=== PATIENT | male | born 1970 | race Caucasian/White ===

== ENCOUNTER 2017-03-04 22:48 | Emergency (ER) | payer BC ==
[2017-03-04] MEDS ORDERED: DIPH,PERTUSS(ACELL),TET VAC/PF 0.5 ML VIAL IM ONE (23:16)
[2017-03-04] MEDS ORDERED: LIDOCAINE HCL 1% 20 ML VIAL ONE (23:16)
[2017-03-05] MEDS ORDERED: [UNRECOGNIZED DRUG - OTHER] PO ONE (00:05)
--- NOTE | 2017-03-05 00:48 | ER NURSING DOCUMENTATION ---
Nurse's Notes [facility] Name:Ketan Oropeza Age:46 yrs Sex:Male :1970 Arrival Date:03/04/2017 Time:22:48 Bed1 Private MD:King Kerns Diagnosis:Foot Laceration;Tendon Injury Presentation: 03/04 22:53 Presenting complaint: Patient states: At 2215, dropped a dirty knife (cutting beef) on sj his foot. 1 cm lac to top of right foot. Now has numbness to dorsum of foot and all toes. Transition of care: Home. Notified ED Physician of patient's arrival and CC Dr. Baxter notified. Care prior to arrival: cleaned with peroxide. 22:53 Acuity: HARDIK 3 sj 22:53 Method Of Arrival: Private Vehicle Triage Assessment: 22:56 General: Appears uncomfortable, Behavior is cooperative, pleasant. Pain: Complains of sj pain in dorsum of right foot, between 1st and 2nd metatarsal. Neuro: Level of Consciousness is awake, alert, Oriented to person, place, time, event, Reports numbness in dorsum of foot and all toes. Cardiovascular: Capillary refill < 3 seconds. Respiratory: Respiratory effort is even, unlabored, Respiratory pattern is regular, symmetrical. Musculoskeletal: Circulation, motion, and sensation intact Capillary refill < 3 seconds. Injury Description: Laceration sustained to dorsum of right foot is 0.5 to 2.5 cm long, not bleeding, was sustained 30-60 minutes ago. is bleeding no active bleeding noted. Historical: - Allergies: No known drug Allergies; - PMHx: None; - PSHx: hernia repair; - Tetanus: > 10 years. - Ebola Screening: : Patient negative for fever greater than or equal to 101.5 degrees Fahrenheit, and additional compatible Ebola Virus Disease symptoms. Patient denies exposure to infectious person. Patient denies travel to an Ebola-affected area in the 21 days before illness onset. No symptoms or risks identified at this time. . - Immunization history: Pneumococcal vaccine is not up to date, Patient has never been vaccinated Flu Vaccine None. - Social history: Smoking status: Patient states was never smoker of tobacco. Patient uses marijuana Patient/guardian denies using alcohol. Screenin/21 00:46 Infectious Disease Risk None. Abuse screen: Denies threats or abuse. Denies injuries sj from another. Nutritional screening: No deficits noted. Vital Signs: 03/04 22:59 BP 186 / 112; Pulse 121; Resp 22; Temp 97.6(O); Pulse Ox 94% on R/A; Weight 77.11 kg; sj Height 5 ft. 8 in. (172.72 cm); Pain 8/10; 22:59 Body Mass Index 25.85 (77.11 kg, 172.72 cm) ED Course: 22:48 Patient arrived in ED. em2 22:53 King Kerns DO is Private Physician. em2 22:53 Libertad Valdes is Primary Nurse. sj 22:55 Tj Baxter MD is Attending Physician. tl1 22:55 Triage completed. sj 23:14 Port Xray Completed. lili 23:22 Wound care was cleaned with Betadine, Irrigation Normal Saline. em1 23:30 Edison Handley DO, Vincent Vargas MD is Referral Physician. tl1 03/05 00:44 Ortho shoe/post op shoe applied to right foot. Wound care to laceration was dressed sj with bacitracin antibiotic ointment, vaseline gauze, kerlix. Ortho cast shoe applied. 00:47 Valuables Remains with patient Patient has correct armband on for positive sj identification. Bed in low position. Administered Medications: 03/04 23:10 Drug: Tetanus-Diphtheria Toxoid Adult 0.5 ml; {[employer]: [employer]. sj Exp: 02/09/2018. Lot #: [id number]. } Route: IM; Site: right deltoid; 23:10 Drug: Lidocaine (1 %) 10 ml; Route: Infiltration; sj Outcome: 23:31 Discharge ordered by . tl1 03/05 00:42 Discharged to home ambulatory. sj Condition: stable Instructed on discharge instructions, follow up and referral plans. wound care, Demonstrated understanding of instructions, Patient left without pre-pack of antibiotics. Unable to reach at home by phone. Discharge plan for him to call surgeon in AM. 00:47 Patient left the ED. sj 17:19 Discharge F/U Call: Unable to reach: no answer lp Signatures: Saima Todd RN RN Valerie DelgadoGPaldayo, MelidaChina-8dayo em1 Clara Brady em2 Tj Baxter MD MD tl1 Libertad Valdes
--- NOTE | 2017-03-05 00:48 | ER PHYSICIAN DOCUMENTATION ---
Physician Documentation [facility] Name:Ketan Oropeza Age:46 yrs Sex:Male :1970 Arrival Date:03/04/2017 Time:22:48 Bed1 Private MD:King Kerns ED, Tom Disposition: 03/04 23:28 Chart complete. tl1 Disposition: 03/04/17 23:31 Discharged to Home/Self Care. Impression: Foot Laceration, Tendon Injury. - Condition is Good. - Discharge Instructions: PUNCTURE WOUND, Foot, TENDON LACERATION - LACERATION, Tendon. - Medical Reconciliation form form. - Follow up: Edison Handley DO, Vincent Vargas MD; When: Tomorrow; Reason: Recheck today's complaints. - Problem is new. - Symptoms have improved. HPI: 11:05 This 46 yrs old Male presents to ER via Private Vehicle with complaints of tl1 Foot Injury - RIGHT. 22:55 This 46 yrs old Male presents to ER with complaints of Foot Injury - RIGHT. tl1 11:05 The patient presents with a puncture wound, KNIFE. The complaints affect the right tl1 foot, dorsum of right foot OVER THE DISTAL 1ST METATARSAL. Context: The problem was sustained at home, resulted from DROPPING A KNIFE ON HIS BARE FOOT., the patient can fully bear weight. Onset: The symptom(s)/episode began/occurred suddenly, just prior to arrival. Associated signs and symptoms: Pertinent positives: INABILITY TO DORSIFLEX RIGHT GREAT TOE.. Severity of symptoms: At their worst the symptoms were mild, in the emergency department the symptoms are unchanged. Historical: - Allergies: No known drug Allergies; - PMHx: None; - PSHx: hernia repair; - Tetanus: > 10 years. - Ebola Screening: : Patient negative for fever greater than or equal to 101.5 degrees Fahrenheit, and additional compatible Ebola Virus Disease symptoms. Patient denies exposure to infectious person. Patient denies travel to an Ebola-affected area in the 21 days before illness onset. No symptoms or risks identified at this time. . - Immunization history: Pneumococcal vaccine is not up to date, Patient has never been vaccinated Flu Vaccine None. - Social history: Smoking status: Patient states was never smoker of tobacco. Patient uses marijuana Patient/guardian denies using alcohol. ROS: 23:18 MS/extremity: Positive for laceration tl1 23:18 All other systems are negative. Exam: 23:18 Constitutional: This is a well developed, well nourished patient who is awake, alert, tl1 and in no acute distress. 23:18 Head/face: Exam is negative for 23:18 Cardiovascular: Rate: normal. 23:18 Respiratory: Respirations: normal. 23:18 Musculoskeletal/extremity: Extremities: grossly normal except: noted in the dorsum of right foot: laceration, puncture, tenderness, MARKED WEAKNESS OF RIGHT GREAT TOE DORSIFLEXION., Circulation is intact in all extremities. 23:19 Musculoskeletal/extremity: tl1 Vital Signs: 22:59 BP 186 / 112; Pulse 121; Resp 22; Temp 97.6(O); Pulse Ox 94% on R/A; Weight 77.11 kg; sj Height 5 ft. 8 in. (172.72 cm); Pain 8/10; 22:59 Body Mass Index 25.85 (77.11 kg, 172.72 cm) sj MDM: 22:55 Patient medically screened. tl1 23:20 Differential diagnosis: penetrating trauma, PROBABLE LACERATION OF EXTENSOR HALLUCIS tl1 LONGUS TENDON. Data reviewed: vital signs, nurses notes, radiologic studies, and as a result, I will discharge patient. Test interpretation: by ED physician or midlevel provider: plain radiologic studies. Counseling: I had a detailed discussion with the patient and/or guardian regarding: the historical points, exam findings, and any diagnostic results supporting the discharge/admit diagnosis, radiology results, the need for outpatient follow up, for definitive care, for a referral to a specialist, a orthopedic surgeon. Response to treatment: the patient's symptoms have mildly improved after treatment, and as a result, I will discharge patient. ED course: LOCAL ANESTHESIA WITH 1% LIDOCAINE, CLEANSING , IRRIGATION, . 23:41 ED course: I left this open because it is a puncture wound. This was bandaged and he tl1 was given a post-op shoe. I want him to see Dr Handley or Dr Vargas tomorrow. He was given one day of keflex prophylaxis.. 03/05 11:30 Order name: FOOT;3 [place] [id number] EDMS Dispensed Medications: 23:10 Drug: Tetanus-Diphtheria Toxoid Adult 0.5 ml; {[employer]: [employer]. brittany Exp: 02/09/2018. Lot #: [id number]. } Route: IM; Site: right deltoid; 23:10 Drug: Lidocaine (1 %) 10 ml; Route: Infiltration; Signatures: Tj Baxter MD MD tl1 Libertad Valdes
--- NOTE | 2017-03-05 10:51 | RADIOLOGY REPORT ---
Three views of the right foot demonstrate no displaced fracture, subluxation or bony destructive change. No radiopaque foreign body is identified. The visualized joints appear unremarkable. IMPRESSION: No displaced injury is identified. If clinically indicated, further evaluation and/or follow-up may be of benefit. EILEEN
== END 2017-03-05 00:48 | disposition home or self-care (01) ==
LOC: ER 22:48
DX: S91.311A Laceration without foreign body, right foot, initial encounter (principal); S96.991A Other specified injury of unspecified muscle and tendon at ankle and foot level, right foot, initial encounter; W26.0XXA Contact with knife, initial encounter; W20.8XXA Other cause of strike by thrown, projected or falling object, initial encounter; Y92.010 Kitchen of single-family (private) house as the place of occurrence of the external cause; Y93.G9 Activity, other involving cooking and grilling; Z23 Encounter for immunization
CPT/HCPCS: 90471; 99284